=== PATIENT | male | born 1950 | race Caucasian/White ===

== ENCOUNTER 2018-12-12 15:07 | Inpatient (IN) | payer OTHER ==
[~2018-12-12] VITALS: Ht 167.6 cm; Wt 81.6 kg
[2018-12-12 15:22] VITALS: BP 155/75
[2018-12-12] MEDS ORDERED: ATORVASTATIN CA80 MG PO (15:25)
[2018-12-12] MEDS ORDERED: RESTORIL15 M1 PO (15:25)
[2018-12-12] MEDS ORDERED: LISINOPRIL2.5 MG PO (15:26)
[2018-12-12] MEDS ORDERED: ASA81BEC PO (15:26)
[2018-12-12] MEDS ORDERED: TOPROL XL50 MG PO (15:26)
[2018-12-12] MEDS ORDERED: ZETIA10 MG PO (15:26)
[2018-12-12 17:41] LABS: ABSOLUTE BASOPHILS 0.1 thou/uL (0.0-0.2); ABSOLUTE EOSINOPHILS 0.2 thou/uL (0.0-0.7); ABSOLUTE LYMPHOCYTES 1.4 thou/uL (0.8-5.3); ABSOLUTE MONOCYTES 1.1 thou/uL (0.0-1.2); ABSOLUTE NEUTROPHILS 15.3 thou/uL (1.6-8.1); BASOPHILS 0.5 %; EOSINOPHILS 1.2 %; HEMATOCRIT 43.6 % (42.0-52.0); HEMOGLOBIN 14.8 gm/dL (14.0-18.0); LYMPHOCYTES 7.8 %; MCH 35.5 pg (26.0-34.0); MCHC 33.9 g/dL (28.0-37.0); MCV 104.6 fL (80.0-100.0); MONOCYTES 5.8 %; MPV 10.7 fl. (7.2-11.1); NUCLEATED RBCS 0 /100WBC; PLATELET COUNT* 245 thou/uL (150-400); POLYS 84.7 %; RBC 4.16 mil/uL (4.50-6.00); RDW-CV 14.4 % (10.5-14.5); WBC 18.1 thou/uL (4.0-11.0)
[2018-12-12 17:45] LABS: CALCIUM 9.6 mg/dL (8.5-10.1); CREATININE 0.8 mg/dL (0.6-1.3)
--- NOTE | 2018-12-12 17:59 | NUR ---
20G IV LEFT AC PLACED BY DR. VANEGAS.
[2018-12-12 18:22] VITALS: BP 115/67
[2018-12-12 18:48] VITALS: BP 124/78
[2018-12-12 21:17] VITALS: BP 129/77
--- NOTE | 2018-12-13 04:24 | NUR ---
ASSUMED CARE OF PT 12/12/18 APPROX 1930, PT REMAINED A&OX4 THORUGHOUT SHIFT, PT ON ROOM AIR, HEELS KEPT ELEVATED ABOVE HEART CONTINUALLY, PAIN MEDS REQUESTED AND ADMINISTERED ORDERED, PT SLEPT WELL. ASSESSMENTS AND HOURLY ROUNDING COMPLETED. FALL PRECAUTIONS IN PLACE. WILL CONTINUE TO MONITOR.
[2018-12-13 07:30] VITALS: BP 92/56
--- NOTE | 2018-12-13 14:30 | NUR ---
SPOKE WITH PT.AND . IN ROOM. HE SAID HE HAD HIS CT SCANS EARLIER. HE HAS NO DME AT HOME. HE HOPES TO GO HOME AT DISCHARGE. IS ON BEDREST AT THIS TIME. RESULTS OF CT SCANS WILL DETERMINE DISCHARGE PLAN. HE HAS ALOT OF STAIRS IN HIS HOME. HAS ABOUT 8 TO GET FROM GARAGE TO MAIN FLOOR. THIS FLOOR DOES NOT HAVE BATHROOM OR BEDROOMS. HAS TO GO UP ANOTHER FLIGHT OF STEPS TO GET TO BEDROOM AND BATHROOM. HE WILL MOST LIKELY NEED A WC, SLIDING BOARD,WALKER, BEDSIDE COMMODE. CAN BE HOME WITH HIM ALL THE TIME. THEY ARE BOTH RETIRED. CM WILL FOLLOW IN AM AND ORDER DME.
[2018-12-13 16:00] VITALS: BP 105/66
--- NOTE | 2018-12-13 16:33 | NUR ---
ASSUMED CARE AT 0730. ALERT ORIENTED PLEASANT COOPERATIVE. HX OF BILATERAL CALCANEOUS FXS. BLES ELEVATED CONSTANTLY WHEN IN BED. SHONNA WRAPS BLES, C AND S ADEQUATE TOES WARM PINK. PT. HAS WORKED WITH P.T. DOING SLIDING BOARD TRANSFERS WAS UP IN W/C PROPELLING SELF ABOUT UNIT. MEDICATED X 1 FOR PAIN THIS AFTERNOON BEFORE P.T. SESSION WITH RELIEF STATED. HERE ALL DAY IN PTS ROOM.
[2018-12-13 21:00] VITALS: BP 100/51
--- NOTE | 2018-12-14 06:10 | NUR ---
PATIENT SLEPT MOST OF THE NIGHT. IV REMAINS SALINE LOCKED. PATIENT WAS GIVEN PAIN MEDICINE ONCE THIS SHIFT. WILL CONTINUE TO MONITOR.
[2018-12-14 08:10] VITALS: BP 114/63
[2018-12-14 15:42] VITALS: BP 114/63
[2018-12-14 15:54] VITALS: BP 115/65
--- NOTE | 2018-12-14 15:55 | NUR ---
SW followed up with pt and pt about dc planning and pt/pt concerned for pt safety of dc home with the amount of stairs and with pt being alone most of the time (pt shared that pt and pt were in the process of thinking about moving and getting a divorce). SW discussed referral with Lily, inpt rehabilitation clerk as well as pt nurse. Dr Rodriguez was consulted and after pt and Dr Rodriguez spoke, pt and pt were upset that pt might not be accepted to inpt rehab. SW spoke with Lily again and asked about reconsideration and submittance to pt insurance, Lily said that she would review referral again and discuss with Dr Rodriguez. Pt does not feel SNF would be the best option for him and stated that he might want to try dc home if inpt rehab isn't an option after all. SW discussed situation with pt and pt at length as well as with therapy staff and nursing. SW to continue to follow to assist with safe dc planning. SW to send referral/order for DME to [facility] in case pt dc home tomorrow; pt would need D[place] and [place] services [place].
--- NOTE | 2018-12-14 18:53 | NUR ---
PATIENT RESTING IN BED. PATIENT HAS HAD COMPLAINTS OF FOOT PAIN, WITH ADEQUATE RELIEF WITH PERCOCET. PATIENT HAS WORKED WITH PHYSICAL AND OCCUPATIONAL THERAPIES TODAY. PATIENT UPSET THAT ORTHOPEDICS NOT ROUNDING TODAY AND SPOKE WITH PATIENT ADVOCATE. SPOKE WITH ORTHO AND TRIED TO GET ALL QUESTIONS ANSWERED FOR PATIENT. PATIENT DENIES ANY NEEDS AT THIS TIME. CALL LIGHT WITHIN REACH.
[2018-12-14 20:51] VITALS: BP 127/58
--- NOTE | 2018-12-15 05:52 | NUR ---
PATIENT SLEPT MOST OF THE NIGHT. IV REMAINS SALINE LOCKED. PATIENT WAS GIVEN PAIN MEDICINE ONCE THIS SHIFT. PATIENT IS POSSIBLY DISCHARGING TODAY. WILL CONTINUE TO MONITOR.
[2018-12-15 08:00] VITALS: BP 118/71
[2018-12-15] MEDS ORDERED: IBUPROFEN 800800 M1 PO (09:08)
[2018-12-15] MEDS ORDERED: PERCOCET PO (09:08)
[2018-12-15 09:43] VITALS: BP 114/63
--- NOTE | 2018-12-15 13:20 | NUR ---
pt w/c will be delivered today to his room later this afternoon, probably around 3p. pt's commode will be delivered to his home tomorrow after pt d/c. pt does not want slide board. PT is in agreement that slide board isnt needed. cm notified beth at [facility] to cancel slide board. beth confirmed. cm faxed referral to [facility] at [phone].
--- NOTE | 2018-12-15 15:51 | NUR ---
CM updated [facility] that Pt will be discharging to home tonight around 8pm, instead of tomorrow. CM requested that [facility] deliver the commode to Pt's home as early as possible tomorrow.
[2018-12-15 15:54] VITALS: BP 111/72
--- NOTE | 2018-12-15 17:35 | NUR ---
PATIENT DISCHARGED TO HOME WITH HOME HEALTH. DISCHARGE PAPERS REVIEWED AND SIGNED. PRESCRIPTION AND INFORMATION SHEETS GIVEN. WHEELCHAIR DELIVERED BY [facility]. IV REMOVED. PATIENT DENIES ANY FURTHER NEEDS AT THIS TIME. PATIENT TAKEN BY WHEELCHAIR TO EXIT. LEFT WITH FRIEND.
== END 2018-12-15 17:35 | disposition home health service (06) | DRG 563 ==
LOC: M.ERS 15:07 → M.TBA-ER 17:24 → M.3W 17:24
PROVIDERS: Nurse Practitioner Family; ADMIT Internal Medicine
DX: S92.002A Unspecified fracture of left calcaneus, initial encounter for closed fracture (principal); S92.001A Unspecified fracture of right calcaneus, initial encounter for closed fracture; I25.10 Atherosclerotic heart disease of native coronary artery without angina pectoris; I10 Essential (primary) hypertension; E78.5 Hyperlipidemia, unspecified; G47.00 Insomnia, unspecified; Z79.82 Long term (current) use of aspirin; Z90.81 Acquired absence of spleen; Z87.891 Personal history of nicotine dependence; Z79.899 Other long term (current) drug therapy; W11.XXXA Fall on and from ladder, initial encounter; Y93.89 Activity, other specified; Y92.89 Other specified places as the place of occurrence of the external cause; Y99.8 Other external cause status